=== PATIENT | male | born 1950 | race Caucasian/White ===

== ENCOUNTER 2020-01-21 05:40 | Day surgery (SDC) | payer MEDICARE ==
[~2020-01-21] VITALS: Ht 182.9 cm; Wt 101.0 kg
[2020-01-21] MEDS ORDERED: LACTATED RINGERS 1,000 ML IV SCH (06:48)
[2020-01-21] MEDS ORDERED: CHLORHEXIDINE 15 ML UDC ONE (06:51)
[2020-01-21] MEDS ORDERED: CHLORHEXIDINE 15 ML UDC MM ONE (07:00)
[2020-01-21] MEDS ORDERED: LIDOCAINE-MPF 1%, 2ML INFIL ONE (07:00)
[2020-01-21 07:07] VITALS: BP 115/73
[2020-01-21] MEDS ORDERED: MIDAZOLAM 1 MG/ML, 2ML ONE (07:10)
[2020-01-21] MEDS ORDERED: FENTANYL PF 100 MCG/2ML ONE (07:10)
[2020-01-21] MEDS ORDERED: OMEP-110 PO (07:25)
[2020-01-21] MEDS ORDERED: FENTANYL PF 100 MCG/2ML IV PRN (07:30)
[2020-01-21] MEDS ORDERED: MEPERIDINE/PF 25MG/0.5ML IVPush PRN (07:30)
[2020-01-21] MEDS ORDERED: ONDANSETRON 2MG/ML, 2ML IVPush PRN (07:30)
[2020-01-21] MEDS ORDERED: OXYcodone 5 MG/5 ML ORAL.SOL UDC PO PRN (07:30)
[2020-01-21] MEDS ORDERED: LABETALOL 5MG/ML, 20ML IV PRN (07:30)
[2020-01-21] MEDS ORDERED: PROPOFOL 10 MG/ML, 20ML ONE (07:56)
[2020-01-21] MEDS ORDERED: ONDANSETRON 2MG/ML, 2ML ONE (08:47)
== END 2020-01-21 09:30 | disposition home or self-care (01) ==
LOC: OUT 05:40
PROVIDERS: ATTEND Internal Medicine Geriatric Medicine
DX: K22.8 Other specified diseases of esophagus (principal); Z11.59 Encounter for screening for other viral diseases; C15.9 Malignant neoplasm of esophagus, unspecified; K29.50 Unspecified chronic gastritis without bleeding
CPT/HCPCS: 36415; 43239; 43259; 87635; 88305; 93005; J2250; J2405; J2704; J3010; J7120